=== PATIENT | male | born 1990 ===

== ENCOUNTER 2021-08-06 19:09 | Observation (INO) ==
[2021-08-06] MEDS ORDERED: *HR* FentaNYL (PF) 100 MCG/2 ML VIAL ONE (21:15)
[2021-08-06] MEDS ORDERED: Ondansetron 4 MG/2 ML VIAL ONE (21:15)
[2021-08-06] MEDS ORDERED: Lidocaine -MPF 2% 2 ML VIAL ONE (21:15)
[2021-08-06] MEDS ORDERED: *HR* Propofol 200 MG/20 ML VIAL IVP ONE (21:16)
[2021-08-06] MEDS ORDERED: *HR* Midazolam HCl 2 MG/2 ML VIAL ONE (21:16)
[2021-08-06] MEDS ORDERED: *HR* HYDROmorphone (PF) 1 MG/ML SYRINGE IVP PRN (21:40)
[2021-08-06] MEDS ORDERED: Nitroglycerin 0.4 MG TAB.SUBL SL PRN (21:40)
[2021-08-06] MEDS ORDERED: Albuterol 2.5 MG/3 ML NEBULIZER IH PRN (21:40)
[2021-08-06] MEDS ORDERED: Ondansetron 4 MG/2 ML VIAL IVP PRN ×2 (21:40→23:41)
[2021-08-06] MEDS ORDERED: Acetaminophen IV 1,000 MG/100 ML BAG IVPB ONE ×2 (21:40→22:28)
[2021-08-06] MEDS ORDERED: Naloxone 0.4 MG/ML INJ IVP PRN (21:40)
[2021-08-06] MEDS ORDERED: *HR* FentaNYL (PF) 100 MCG/2 ML VIAL IVP PRN (21:40)
[2021-08-06] MEDS ORDERED: Lidocaine/EPI 1:100k 1% 20 ML VIAL ONE (21:53)
[2021-08-06] MEDS ORDERED: *HR* HYDROMORPHONE 2 MG/ML VIAL ONE (22:00)
[2021-08-06] MEDS ORDERED: Ketorolac 30 MG/ML VIAL ONE (22:28)
[2021-08-06] MEDS ORDERED: Ringers Solution, Lactated 1,000 ML ONE (22:47)
[2021-08-06] MEDS ORDERED: Acetaminophen 325 MG TABLET PO PRN (23:41)
[2021-08-06] MEDS ORDERED: 0.9 % Sodium Chloride 1,000 ML IVC SCH (23:45)
[2021-08-07] MEDS ORDERED: Albuterol 2.5 MG/3 ML NEBULIZER IH PRN (00:10)
[2021-08-07] MEDS ORDERED: Nitroglycerin 0.4 MG TAB.SUBL SL PRN (00:10)
[2021-08-07] MEDS ORDERED: Acetaminophen IV 1,000 MG/100 ML BAG IVPB ONE (00:10)
[2021-08-07] MEDS ORDERED: Ondansetron 4 MG/2 ML VIAL IVP PRN (00:10)
[2021-08-07] MEDS ORDERED: *HR* FentaNYL (PF) 100 MCG/2 ML VIAL IVP PRN (00:10)
[2021-08-07] MEDS ORDERED: Naloxone 0.4 MG/ML INJ IVP PRN (00:10)
[2021-08-07] MEDS ORDERED: *HR* HYDROmorphone (PF) 1 MG/ML SYRINGE IVP PRN (00:10)
[2021-08-07] MEDS: ceFAZolin 2,000 MG in 0.9 % Sodium Chloride 100 ML IVPB SCH ×2 (00:49→08:30)
[2021-08-07 07:43] VITALS: BP 126/82; PULSE 63; TEMP 98.3; O2SAT 98
[2021-08-07] MEDS ORDERED: *HR* OxyCODONE/APAP 5/325 TABLET PO PRN (08:02)
== END 2021-08-07 10:39 | disposition home or self-care (01) ==
LOC: 4WAOSI → SUATTDRO 20:08
PROVIDERS: ADMIT Internal Medicine; ATTEND Internal Medicine